=== PATIENT | female | born 1975 | race Hispanic/Latino ===

== ENCOUNTER 2018-09-30 21:12 | Emergency (ER) | payer MEDICAID | END 2018-09-30 21:33 | disposition home or self-care (01) | LOC: EDH 21:12 | DX: G44.209 Tension-type headache, unspecified, not intractable (principal); G43.909 Migraine, unspecified, not intractable, without status migrainosus; Z98.890 Other specified postprocedural states | CPT/HCPCS: 99281 ==

== ENCOUNTER 2019-01-15 08:59 | Emergency (ER) | payer MEDICAID, OTHER ==
[2019-01-15] MEDS ORDERED: SODIUM CHLORIDE 0.9% 1000ML 1,000 ML IV ONE (09:31)
[2019-01-15] MEDS ORDERED: ONDANSETRON HCL 4 MG/2 ML VIAL ONE (09:31)
[2019-01-15] MEDS ORDERED: KETOROLAC TROMETHAMINE 30MG/ML ONE (09:31)
[2019-01-15 09:46] LABS: APPEARANCE,URINE Cloudy (CLEAR); BILIRUBIN,URINE Negative (NEGATIVE); COLOR,URINE Yellow (YELLOW); GLUCOSE, URINE (UA) Negative (NEGATIVE); KETONES,URINE Negative (NEGATIVE); LEUKOCYTE ESTERASE ,URINE Small (NEGATIVE); NITRATE,URINE Negative (NEGATIVE); OCCULT BLOOD,URINE Small (NEGATIVE); PH,URINE 5.5 (5.0-8.0); PROTEIN,URINE POS 2+ mg/dL (NEGATIVE)
[2019-01-15 09:51] LABS: BASOPHILS % (AUTO) 0.9 % (0.0-5.0); EOSINOPHILS % (AUTO) 1.2 % (0.0-8.0); HEMATOCRIT 40.1 % (36-48); LYMPHOCYTES % (AUTO) 18.1 % (21.0-51.0); MEAN CORPUSCULAR HEMOGLOBIN 29.9 pg (27.0-33.0); MEAN CORPUSCULAR HGB CONC 34.4 g/dL (32.0-36.0); MEAN CORPUSCULAR VOLUME 86.8 fL (79-99); MONOCYTES % (AUTO) 6.3 % (3.0-13.0); NEUTROPHILS % (AUTO) 73.5 % (40.0-77.0); PLATELET COUNT (AUTO) 171 K/uL (130-400); RED BLOOD CELL COUNT(AUTO) 4.62 MIL/uL (4.00-5.50); RED CELL DISTRIBUTION WIDTH 13.3 % (11.0-15.5); WHITE BLOOD COUNT (AUTO) 5.9 K/uL (4.8-10.8)
[2019-01-15 09:52] LABS: HCG,QUAL RESULT NEGATIVE (NEGATIVE)
[2019-01-15 09:54] LABS: CREATININE 0.9 mg/dL (0.5-1.5); POTASSIUM 3.9 mmol/L (3.5-5.1)
[2019-01-15 09:55] LABS: AMPHET/METH SCREEN,URINE NEGATIVE (NEGATIVE); BARBITURATE SCREEN, URINE NEGATIVE (NEGATIVE); BENZODIAZEPINES SCREEN,URINE NEGATIVE (NEGATIVE); CANNABINOID SCREEN,URINE NEGATIVE (NEGATIVE); COCAINE SCREEN,URINE NEGATIVE (NEGATIVE); OPIATE SCREEN,URINE NEGATIVE (NEGATIVE); PHENCYCLIDINE SCREEN,URINE NEGATIVE (NEGATIVE)
[2019-01-15 09:57] LABS: BACTERIA,URINE Few /HPF (None Seen); MUCUS,URINE Few LPF (None Seen); RBC,URINE 0-1 /HPF (0-1); SQUAMOUS EPITHELIAL CELL,UR Few /HPF (0-2)
[2019-01-15 10:00] LABS: ALBUMIN 3.8 g/dL (3.5-5.0); BILIRUBIN,DIRECT 0.1 mg/dL (0.0-0.3); BILIRUBIN,TOTAL 0.4 mg/dL (0.2-1.0); TOTAL PROTEIN, SERUM 7.5 g/dL (6.0-8.3)
== END 2019-01-15 12:47 | disposition home or self-care (01) ==
LOC: EDH 08:59
DX: R10.13 Epigastric pain (principal); R10.11 Right upper quadrant pain; R11.0 Nausea; G43.909 Migraine, unspecified, not intractable, without status migrainosus; Z98.890 Other specified postprocedural states
CPT/HCPCS: 36415; 76705; 80048; 80076; 80305; 81001; 81025; 83690; 85025; 93005; 96374; 96375; 99285; J1885; J2405; J7030

== ENCOUNTER 2020-05-07 23:25 | Emergency (ER) | payer OTHER ==
[2020-05-07 23:49] LABS: BASOPHILS % (AUTO) 0.5 % (0.0-5.0); EOSINOPHILS % (AUTO) 0.4 % (0.0-8.0); HEMATOCRIT 44.6 % (36-48); LYMPHOCYTES % (AUTO) 19.6 % (21.0-51.0); MEAN CORPUSCULAR HEMOGLOBIN 30.5 pg (27.0-33.0); MEAN CORPUSCULAR HGB CONC 33.6 g/dL (32.0-36.0); MEAN CORPUSCULAR VOLUME 90.8 fL (79-99); NEUTROPHILS % (AUTO) 73.1 % (40.0-77.0); PLATELET COUNT (AUTO) 240 K/uL (130-400); RED BLOOD CELL COUNT(AUTO) 4.91 MIL/uL (4.00-5.50); RED CELL DISTRIBUTION WIDTH 12.8 % (11.0-15.5); WHITE BLOOD COUNT (AUTO) 12.8 K/uL (4.8-10.8)
[2020-05-07] MEDS ORDERED: KETOROLAC TROMETHAMINE 30MG/ML ONE (23:52)
[2020-05-07] MEDS ORDERED: DiphenhydrAMINE HCL 50 MG/ML VIAL ONE (23:52)
[2020-05-07] MEDS ORDERED: PROCHLORPERAZINE EDISYLATE 10 MG/2 ML VIAL ONE (23:53)
[2020-05-07 23:57] LABS: POTASSIUM 3.9 mmol/L (3.5-5.1)
[2020-05-08 00:02] LABS: ALBUMIN 4.2 g/dL (3.5-5.0); BILIRUBIN,TOTAL 0.2 mg/dL (0.2-1.0); TOTAL PROTEIN, SERUM 8.2 g/dL (6.0-8.3)
[2020-05-08 00:08] LABS: INR 0.98 (0.85-1.15); PROTHROMBIN TIME 10.5 SEC (9.6-11.6)
[2020-05-08 00:09] LABS: PARTIAL THROMBOPLASTIN TIME 24.5 SEC (26.3-35.5)
== END 2020-05-08 01:21 | disposition home or self-care (01) ==
LOC: EDH 23:25
DX: G43.009 Migraine without aura, not intractable, without status migrainosus (principal); R07.89 Other chest pain; R11.0 Nausea; Z98.890 Other specified postprocedural states
CPT/HCPCS: 36415; 71045; 80053; 84484; 85025; 85610; 85730; 93005; 96361; 96374; 96375; 99285; J0780; J1200; J1885

== ENCOUNTER 2020-12-03 22:30 | Emergency (ER) | payer MEDICAID, OTHER ==
[~2020-12-03] VITALS: Ht 157.5 cm; Wt 64.4 kg
[2020-12-03 23:15] VITALS: BP 109/74
[2020-12-04] MEDS ORDERED: PROMETHAZINE HCL 25 MG/ML 1ML AMPULE IM ONE (04:00)
[2020-12-04] MEDS ORDERED: DiphenhydrAMINE HCL 50 MG/ML VIAL IM ONE (04:00)
[2020-12-04] MEDS ORDERED: PROC5TAB54 PO (05:40)
[2020-12-04 05:44] VITALS: BP 118/55
== END 2020-12-04 05:53 | disposition home or self-care (01) ==
LOC: EDH 22:30
DX: J06.9 Acute upper respiratory infection, unspecified (principal); R11.2 Nausea with vomiting, unspecified; R51.9 Headache, unspecified; Z20.822 Contact with and (suspected) exposure to COVID-19; Z79.899 Other long term (current) drug therapy
CPT/HCPCS: 87635; 96372 ×2; 99284; C9803; J1200; J2550

== ENCOUNTER 2024-05-24 16:24 | Emergency (ER) | payer MEDICAID ==
[~2024-05-24] VITALS: Ht 157.5 cm; Wt 59.0 kg
[~2024-05-24 16:24] MED LIST: PROC5TAB54 PO
--- NOTE | 2024-05-24 16:38 | ERN ---
ED Note History of Present Illness Stated Complaint: VOMITTING,HEADACHE,MULTIPLE COMPLAINTS Chief Complaint: Headache Time Seen by MD: 16:28 Dictation: PATIENT IS A 48-YEAR-OLD FEMALE COMING IN TODAY WITH RIGHT TEMPOROPARIETAL HEADACHE THAT RADIATES TO OCCIPITAL AREA FOR TWO DAYS. SHE STATES SHE HAS HAD INTERMITTENT VOMITING HAS BEEN DIAGNOSED IN THE PAST BY HER PRIMARY CARE DOCTOR WITH MIGRAINE HEADACHES AND TAKES A MEDICATION, NOT WITH HER. NIH IS 0. SHE DROVE HERSELF TO THE EMERGENCY ROOM, DID NOT GO SEE HER PRIMARY CARE DOCTOR. Allergies: Coded Allergies: No Known Drug Allergies (Unverified Allergy, Unknown, 10/01/18) Home Meds Active Scripts Prochlorperazine Maleate (Compazine) 5 Mg Tab, 5 MG PO TID for headache, #7 TAB Prov:MAG LADD MD 12/04/20 Past Medical History Past Medical History: No Pertinent History Surgical History: Family History: DM, HTN : 5 Para: 2 Aborts: 0 RN Note Reviewed/Agreed w/PFSH: Yes Review of System Dictation CONSTITUTIONAL: NEGATIVE EXCEPT FOR HPI HEAD/FACE: NEGATIVE EXCEPT FOR HPI EENT: NEGATIVE EXCEPT FOR HPI RESPIRATORY: NEGATIVE EXCEPT FOR HPI GASTROINTESTINAL/ABDOMINAL: NEGATIVE EXCEPT FOR HPI NAUSEA VOMITING INTERMITTENT GENITOURINARY: NEGATIVE EXCEPT FOR HPI MUSCULOSKELETAL: NEGATIVE EXCEPT FOR HPI INTEGUMENTARY: NEGATIVE EXCEPT FOR HPI NEUROLOGICAL/PSYCH: NEGATIVE EXCEPT FOR HPI HEADACHE HEMATOLOGIC/LYMPHATIC: NEGATIVE EXCEPT FOR HPI ALL SYSTEMS NEGATIVE, EXCEPT NOTED ABOVE. 13 POINT REVIEW OF SYSTEMS ASSESSED AND ALL NEGATIVE EXCEPT FOR ABOVE. Initial Vital Sign VS Vital Signs Date Time Temp Pulse Resp B/P (MAP) Pulse Ox O2 Delivery O2 Flow Rate FiO2 05/24/24 16:29 98.6 80 20 126/88 99 N/C High Flow System 0 05/24/24 17:17 21 Physical Exam Dictation VITAL SIGNS REVIEWED GENERAL APPEARANCE: ALERT, ORIENTED X 3, MILD ACUTE DISTRESS, WELL DEVELOPED, NOURISHED. HEAD AND FACE: NON-TRAUMATIC. EYES: PERRL, PINK CONJUNCTIVAS, EYELID NO TRAUMA, ANTERIOR CHAMBER WITH ARCUS SENILIS. EARS: PINNAS INTACT AND NO SIGNS OF TRAUMA OR ERYTHEMA EAR CANALS CLEAR AND NO DISCHARGE TM NO ERYTHEMA NOSE: NO DISCHARGE, NO BLEEDING. OROPHARYNX: MOUTH NORMAL, TONGUE PINK, PHARYNX CLEAR,NO ERYTHEMA, TONSILS NO EXUDATES, NO ABSCESSES NOTED, MUCOUS MEMBRANE MOIST NECK: SUPPLE, NON-TENDER, NO THYROMEGALY, NO MASSES, NO JVD, NO BRUITS BREAST:DEFERRED CHEST:NO TENDERNESS, NO CREPITUS, NO PARADOXICAL MOVEMENT, NO RETRACTIONS LUNGS:CLEAR, WELL-VENTILATED, SYMMETRIC, NO RALES, NO WHEEZING, NO RHONCHI, NO STRIDOR, GOOD BREATH SOUNDS BILATERALLY HEART: REGULAR RATE, REGULAR RHYTHM, NO MURMUR, NO GALLOPS VASCULAR: NO PERIPHERAL EDEMA, ABDOMEN: SOFT, POSITIVE BOWEL SOUNDS, NONDISTENDED, NO GUARDING, NONTENDER, NO REBOUND, NO MASSES NO HEPATOMEGALY, NO SPLENOMEGALY, NO BACA'S SIGN, NO HERNIAS. RECTAL: DEFERRED GENITAL: DEFERRED NEUROLOGICAL: NORMAL SPEECH, MOTOR FUNCTION INTACT, SENSORY FUNCTION INTACT MUSCULOSKELETAL: NECK NONTENDER, FULL RANGE OF MOTION, BACK NONTENDER, FULL RA NGE OF MOTION, EXTREMITIES: NONTENDER, FULL RANGE OF MOTION SKIN: COLOR PINK, DRY, NO TURGOR, NO RASH, NO LACERATIONS, NO ABRASIONS, NO CONTUSIONS. LYMPHATIC: DEFERRED Results (Laboratory/Radiology) Labs Reviewed?: Yes ED Course ED Course Orders Procedure Category Date Status Time Ketorolac 60mg/2ml PHA 05/24/24 Complete (Toradol 60mg/2ml) 17:00 Acetaminophen 500mg PHA 05/24/24 Complete Tab (Tylenol 500mg T 17:00 Ondansetron Odt 4mg PHA 05/24/24 Complete Tab (Zofran 4mg Odt) 17:00 Current Medications Medications (Trade) Dose Ordered Sig/Tim Route PRN Reason Start Time Stop Time Status Last Admin Dose Admin Acetaminophen (TYLenol 500MG TAB) 1,000 mg ONCE ONCE PO 05/24/24 17:00 05/24/24 17:01 DC Ketorolac Tromethamine (toRADol 60MG/ 2ML) 60 mg ONCE ONCE IM 05/24/24 17:00 05/24/24 17:01 DC Ondansetron HCl (zoFRAN 4MG ODT) 4 mg ONCE ONCE SL 05/24/24 17:00 05/24/24 17:01 DC Vital Signs Date Time Temp Pulse Resp B/P (MAP) Pulse Ox O2 Delivery O2 Flow Rate FiO2 05/24/24 17:17 98.6 80 20 126/88 99 Room Air* 0 21 05/24/24 16:29 98.6 80 20 126/88 99 N/C High Flow System 0 SEVENTEEN 20, PATIENT HEMODYNAMICALLY STABLE AND DISCHARGED HOME AFTER TREATMENT FOR TENSION TYPE HEADACHE. SHE WILL BE DISCHARGED HOME WITH FIORICET TOLD TO SEE HER PRIMARY CARE DOCTOR TOMORROW OR THE NEXT DAY FOR FOLLOW UP AND MANAGEMENT Medical Decision Making MDM MEDICAL DISCHARGE MAKING BASED ON EMPIRIC TREATMENT FOR A TENSION TYPE HEADACHE. PATIENT WILL BE DISCHARGED HOME WITH FIORICET AND ONDANSETRON TOLD TO SEE HER PRIMARY CARE DOCTOR IN 1-2 DAYS FOR MANAGEMENT DX & DISP Disposition: Discharge Departure Impression: Primary Impression: Tension type headache, unspecified Condition: Stable Scripts Ondansetron (Ondansetron Odt) 4 Mg Tab.rapdis 4 MG PO Q6HPRN PRN for nausea, #16 TAB 0 Refills Prov: GILSON MCCALLUM NP 05/24/24 Butalb/Acetaminophen/Caffeine (Esgic 50-325-40 mg Tablet) 50 Mg-325 Mg-40 Mg Tablet 2 TAB PO Q4H for HEADACHE, #20 TAB 0 Refills TWO TABLETS BY MOUTH P.R.N. HEADACHE, MAXIMUM SIX TABLETS IN 24 HOURS. Prov: GILSON MCCALLUM NP 05/24/24 Additional Instructions: FOLLOW-UP WITH PRIMARY CARE PROVIDER IN 1 TO 2 DAYS. TAKE MEDICATIONS DIRECTED HERE IN THE EMERGENCY ROOM. OKAY TO CONTINUE HOME MEDICATIONS UNLESS OTHERWISE DISCUSSED DURING YOUR VISIT IN THE EMERGENCY ROOM TODAY. RETURN TO YOUR NEAREST EMERGENCY ROOM IF SYMPTOMS WORSEN OR IF THERE IS NO IMPROVEMENT. CALL 911 IF YOU NEED IMMEDIATE ASSISTANCE. TAKE TYLENOL OR MOTRIN [id number] NEEDED AND IF NO CONTRAINDICATIONS ARE PRESENT. INCREASE ORAL HYDRATION. A WOUND CULTURE OR URINE CULTURE WAS ORDERED HERE IN THE EMERGENCY ROOM DEPARTMENT PLEASE FOLLOW-UP WITH PRIMARY CARE PROVIDER AND ADVISE THEM TO GET REPEAT PORTS FROM OUR FACILITY. IF YOU HAD ANY FAUSTO WRAP/SPLINTS THAT WERE APPLIED HERE, PLEASE DO NOT REMOVE THEM UNTIL YOU SEE YOUR PRIMARY CARE OR SPECIALTY. TAKE MEDICATIONS DIRECTED FOR YOUR HEADACHE. SEE YOUR PRIMARY CARE DOCTOR FOR FOLLOW UP AND MANAGEMENT THE NEXT 1-2 DAYS Referrals: NAMAN SALDANA (PCP) Time of Disposition: 17:22 I have reviewed the case, and I agree with, Diagnosis and Plan GILSON MCCALLUM NP May 24, 2024 16:38
[2024-05-24 17:17] VITALS: BP 126/88; PULSE 80; RESP 20; TEMP 98.6; O2SAT 99
[2024-05-24] MEDS ORDERED: BUTA-271 PO (17:23)
[2024-05-24] MEDS ORDERED: ONDA-243 PO (17:23)
[2024-05-24] MEDS: ketOROlac 60 MG VIAL (30MG/ML) IM ONE (17:29)
[2024-05-24] MEDS: ondanSETRON ODT 4MG TAB SL ONE (17:30)
[2024-05-24] MEDS: acetaMINOPHEN 500 MG TABLET PO ONE (17:30)
== END 2024-05-24 17:37 | disposition home or self-care (01) ==
LOC: EDH 16:24
DX: G44.209 Tension-type headache, unspecified, not intractable (principal); Z79.899 Other long term (current) drug therapy; Z98.890 Other specified postprocedural states
CPT/HCPCS: 99283; 96372; J1885

== ENCOUNTER 2024-05-25 23:56 | Emergency (ER) | payer MEDICAID ==
[~2024-05-25] VITALS: Ht 157.5 cm; Wt 59.0 kg
[~2024-05-25 23:56] MED LIST changes: +BUTA-271 PO; +ONDA-243 PO
[2024-05-26 01:22] LABS: BASOPHILS # (AUTO) 0.04 K/uL (0.00-0.20); BASOPHILS % (AUTO) 0.6 % (0.0-5.0); EOSINOPHILS # (AUTO) 0.15 K/uL (0.00-0.70); EOSINOPHILS % (AUTO) 2.3 % (0.0-8.0); HEMATOCRIT 37.7 % (36-48); IMMATURE GRANULOCYTE ABSOLUTE 0.03 K/uL (0-1); LYMPHOCYTES % (AUTO) 30.2 % (21.0-51.0); MEAN CORPUSCULAR HEMOGLOBIN 31.1 pg (27.0-33.0); MEAN CORPUSCULAR HGB CONC 34.2 g/dL (32.0-36.0); MEAN CORPUSCULAR VOLUME 90.8 fL (79-99); MONOCYTES # (AUTO) 0.5 K/uL (0.1-1.0); MONOCYTES % (AUTO) 7.5 % (3.0-13.0); NEUTROPHILS # (AUTO) 3.9 K/uL (1.8-7.7); NEUTROPHILS % (AUTO) 58.9 % (40.0-77.0); PLATELET COUNT (AUTO) 177 K/uL (130-400); RED BLOOD CELL COUNT(AUTO) 4.15 MIL/uL (4.00-5.50); RED CELL DISTRIBUTION WIDTH 13.2 % (11.0-15.5); WHITE BLOOD COUNT (AUTO) 6.6 K/uL (4.8-10.8)
[2024-05-26] MEDS: metoCLOPRAmide 10 MG/2 ML VIAL IVP ONE (01:36)
[2024-05-26] MEDS: DiphenhydrAMINE HCL 50 MG/ML VIAL IV ONE (01:36)
[2024-05-26] MEDS: acetaMINOPHEN 500 MG TABLET PO ONE (01:36)
[2024-05-26] MEDS: 0.9%NACL 1000ML 1,000 ML IV ONE (01:37)
--- NOTE | 2024-05-26 03:57 | ERN ---
ED Note History of Present Illness Stated Complaint: HEADACHE Chief Complaint: Headache Time Seen by MD: 23:59 Time Seen by Midlevel: 23:59 Dictation: The patient is a 48-year-old female with a no significant medical history who presents to the emergency department with a occipital headache onset for pain. Patient reports she took her prescribed Fioricet and the pain went away but it came back after a few hours. Patient was seen here yesterday and was diagnosed with a tension headache. Denies any head trauma. Denies any nausea or vomiting. Denies any visual deficits. Patient reports she has been having headaches all of her life and does not recall if she has ever gone any imaging. No other complaints reported. Allergies: Coded Allergies: No Known Drug Allergies (Unverified Allergy, Unknown, 10/01/18) Home Meds Active Scripts Ondansetron (Ondansetron Odt) 4 Mg Tab.rapdis, 4 MG PO Q6HPRN PRN for nausea, #16 TAB 0 Refills Prov:GILSON MCCALLUM NP 05/24/24 Butalb/Acetaminophen/Caffeine (Esgic 50-325-40 mg Tablet) 50 Mg-325 Mg-40 Mg Tablet, 2 TAB PO Q4H for HEADACHE, #20 TAB 0 Refills TWO TABLETS BY MOUTH P.R.N. HEADACHE, MAXIMUM SIX TABLETS IN 24 HOURS. Prov:GILSON MCCALLUM NP 05/24/24 Prochlorperazine Maleate (Compazine) 5 Mg Tab, 5 MG PO TID for headache, #7 TAB Prov:MAG LADD MD 12/04/20 Past Medical History Past Medical History: No Pertinent History Surgical History: Family History: DM, HTN : 5 Para: 2 Aborts: 0 RN Note Reviewed/Agreed w/PFSH: Yes Review of System Dictation Constitutional: Negative for fever,chills, and weight loss Eyes: Negative for injury, pain,redness, and discharge ENT: Negative for injury,pain or swelling Cardiovascular: Negative for chest pain, palpitations, and edema Respiratory: Negative for shortness of breath, cough, and wheezing, Abdomen/GI: Negative for abdominal pain, nausea, vomiting, diarrhea, and constipation Back: Negative for injury and pain : Negative for injury, bleeding and discharge MS/Extremity: Negative for injury and deformity Skin: Negative for rash, and discoloration Neuro: Negative for , weakness, numbness, tingling, and seizure positive for headache Psych: Negative for suicide ideation, homicidal ideation, and hallucinations Initial Vital Sign VS Vital Signs Date Time Temp Pulse Resp B/P (MAP) Pulse Ox O2 Delivery O2 Flow Rate FiO2 05/26/24 00:01 98.4 65 18 134/87 99 Physical Exam Dictation Vital Signs reviewed General Appearance: Alert, oriented x 3, no acute distress, well developed, nourished. Head and Face: non-traumatic. Eyes: PERRL, pink conjunctivas, eyelid no trauma, anterior chamber with arcus senilis. Ears: Pinnas intact and no signs of trauma or erythema ear canals clear and no discharge TM no erythema Nose: No discharge, no bleeding. Oropharynx: Mouth normal, tongue pink. pharynx clear,no erythema, tonsils no exudates, no abscesses noted, mucous membrane moist Neck: Supple, non-tender, no thyromegaly, no masses, no JVD, no bruits Breast:Deferred Chest:No tenderness, no crepitus, no paradoxical movement, no retractions Lungs:Clear, well-ventilated, symmetric, no rales, no wheezing, no rhonchi, no stridor, good breath sounds bilaterally Heart: Regular rate, regular rhythm, no murmur, no gallops Vascular: no peripheral edema, Abdomen: Soft, positive bowel sounds, nondistended, no guarding, nontender, no rebound, no masses no hepatomegaly, no splenomegaly, no Couch's sign, no hernias. Rectal: Deferred Genital: Deferred Neurological: Normal speech, motor function intact, sensory function intact , upper extremities equal and strength, lower extremities equal and strength Musculoskeletal: Neck nontender, full range of motion, back nontender, full rang e of motion, Extremities: nontender, full range of motion Skin: Color pink, dry, no turgor, no rash, no lacerations, no abrasions, no contusions. Lymphatic: Deferred Results (Laboratory/Radiology) Laboratory/Radiology Laboratory Tests Test 05/26/24 00:51 White Blood Count 6.6 K/uL (4.8-10.8) Red Blood Count 4.15 MIL/uL (4.00-5.50) Hemoglobin 12.9 g/dL (12.0-16.0) Hematocrit 37.7 % (36-48) Mean Corpuscular Volume 90.8 fL (79-99) Mean Corpuscular Hemoglobin 31.1 pg (27.0-33.0) Mean Corpuscular Hemoglobin Concent 34.2 g/dL (32.0-36.0) Red Cell Distribution Width 13.2 % (11.0-15.5) Platelet Count 177 K/uL (130-400) Mean Platelet Volume 12.7 fL (7.5-10.5) H Immature Granulocyte % (Auto) 0.5 % (0-1) Neutrophils (%) (Auto) 58.9 % (40.0-77.0) Lymphocytes (%) (Auto) 30.2 % (21.0-51.0) Monocytes (%) (Auto) 7.5 % (3.0-13.0) Eosinophils (%) (Auto) 2.3 % (0.0-8.0) Basophils (%) (Auto) 0.6 % (0.0-5.0) Neutrophils # (Auto) 3.9 K/uL (1.8-7.7) Lymphocytes # (Auto) 2.0 K/uL (1.0-4.8) Monocytes # (Auto) 0.5 K/uL (0.1-1.0) Eosinophils # (Auto) 0.15 K/uL (0.00-0.70) Basophils # (Auto) 0.04 K/uL (0.00-0.20) Absolute Immature Granulocyte (auto 0.03 K/uL (0-1) Nucleated Red Blood Cells 0.0 % (0.0-0.19) Sodium Level 140 mmol/L (136-145) Potassium Level 4.0 mmol/L (3.5-5.1) Chloride Level 105 mmol/L (101-111) Carbon Dioxide Level 30 mmol/L (21-32) Blood Urea Nitrogen 11 mg/dL (7-18) Creatinine 1.0 mg/dL (0.5-1.0) Glomerular Filtration Rate Calc 70 mL/min (>90) Random Glucose 96 mg/dL (70-105) Total Calcium 8.6 mg/dL (8.5-10.1) Serum Test, Qualitative NEGATIVE (NEGATIVE) Labs Reviewed?: Yes ED Course ED Course Orders Procedure Category Date Status Time Cbc With Differential LAB 05/26/24 Complete 00:23 Basic Metabolic Panel LAB 05/26/24 Complete 00:23 Testing, LAB 05/26/24 Complete Serum Hcg 00:23 0.9%Nacl 1000ml (Ns PHA 05/26/24 Complete 1000ml) 00:30 Metoclopramide 10 PHA 05/26/24 Complete Mg/2 Ml Vial (Reglan 1 00:30 Diphenhydramine Hcl PHA 05/26/24 Complete (Benadryl Inj) 00:30 Acetaminophen 500mg PHA 05/26/24 Complete Tab (Tylenol 500mg T 00:30 Ct Head/Brain W/O CT 05/26/24 Taken Contrast 01:53 Current Medications Medications (Trade) Dose Ordered Sig/Tim Route PRN Reason Start Time Stop Time Status Last Admin Dose Admin Acetaminophen (TYLenol 500MG TAB) 1,000 mg ONCE ONCE PO 05/26/24 00:30 05/26/24 00:31 DC 05/26/24 01:36 Diphenhydramine HCl (BENAdryl INJ) 25 mg ONCE ONCE IV 05/26/24 00:30 05/26/24 00:31 DC 05/26/24 01:36 Metoclopramide HCl (regLAN 10MG IV) 10 mg ONCE ONCE IVP 05/26/24 00:30 05/26/24 00:31 DC 05/26/24 01:36 Sodium Chloride 1,000 ml @ 0 mls/hr ONCE ONCE IV 05/26/24 00:30 05/26/24 00:31 DC 05/26/24 01:37 Vital Signs Date Time Temp Pulse Resp B/P (MAP) Pulse Ox O2 Delivery O2 Flow Rate FiO2 05/26/24 00:01 98.4 65 18 134/87 99 Medical Decision Making MDM The patient is a 48-year-old female with a no significant medical history who presents to the emergency department with a occipital headache onset for pain. Patient reports she took her prescribed Fioricet and the pain went away but it came back after a few hours. Patient was seen here yesterday and was diagnosed with a tension headache. Denies any head trauma. Denies any nausea or vomiting. Denies any visual deficits. Patient reports she has been having headaches all of her life and does not recall if she has ever gone any imaging. No other complaints reported. CBC showed no leukocytosis, no anemia, chemistry showed no electrolyte imbalance, GFR of 70, negative serum , CT head showed no intracranial hemorrhage, mass effect or edema. Patient reports headache went away medication treatment. Patient in no acute distress will continues neurologically intact. Will be discharged to follow up with PCP. Differential diagnosis: Tension headache, dehydration, intracerebral hemorrhage Need for hospitalization: Patient does not meet criteria for hospitalization. There are no social concerns with this patient. DX & DISP Disposition: Discharge Departure Impression: Primary Impression: Tension type headache, unspecified Condition: Stable Additional Instructions: FOLLOW-UP WITH PRIMARY CARE PROVIDER IN 1 TO 2 DAYS. TAKE MEDICATIONS DIRECTED HERE IN THE EMERGENCY ROOM. OKAY TO CONTINUE HOME MEDICATIONS UNLESS OTHERWISE DISCUSSED DURING YOUR VISIT IN THE EMERGENCY ROOM TODAY. RETURN TO YOUR NEAREST EMERGENCY ROOM IF SYMPTOMS WORSEN OR IF THERE IS NO IMPROVEMENT. CALL 911 IF YOU NEED IMMEDIATE ASSISTANCE. TAKE TYLENOL OR MOTRIN [id number] NEEDED AND IF NO CONTRAINDICATIONS ARE PRESENT. INCREASE ORAL HYDRATION. A WOUND CULTURE OR URINE CULTURE WAS ORDERED HERE IN THE EMERGE [facility] ROOM DEPARTMENT PLEASE FOLLOW-UP WITH PRIMARY CARE PROVIDER AND ADVISE THEM TO GET REPEAT PORTS FROM OUR FACILITY. IF YOU HAD ANY FAUSTO WRAP/SPLINTS THAT WERE APPLIED HERE, PLEASE DO NOT REMOVE THEM UNTIL YOU SEE YOUR PRIMARY CARE OR SPECIALTY. Referrals: NAMAN SALDANA (PCP) GRISEL FRANK MD Time of Disposition: 03:56 I have reviewed the case, and I agree with, Diagnosis and Plan SHMUEL REDDY [facility] LAB TECH May 26, 2024 03:57
[2024-05-26 04:07] VITALS: BP 125/65; PULSE 88; RESP 18; TEMP 98.5; O2SAT 99
--- NOTE | 2024-05-26 09:33 | HMCIMG ---
CT HEAD/BRAIN W/O CONTRAST HISTORY: Headaches COMPARISON: None TECHNIQUE: Multiple sequential axial images of the head were obtained from the base of the skull through vertex. Patient was not given contrast through intravenous route. FINDINGS: The ventricles and extraventricular CSF spaces are nondilated for patient's age. There is no midline shift, mass effect or herniation. No acute intracranial bleed is seen. Visualized portion of the paranasal sinuses are grossly within normal limits. IMPRESSION: 1. No acute intracranial bleed is seen. CT was performed with one or more following dose reduction techniques: automated exposure control, adjustment of the mA and kv according to patient's size, or use of a iterative reconstruction technique.
== END 2024-05-26 04:09 | disposition home or self-care (01) ==
LOC: EDH 23:56
DX: G44.209 Tension-type headache, unspecified, not intractable (principal); Z98.890 Other specified postprocedural states
CPT/HCPCS: 99285; 80048; 84703; 85025; 36415; 96374; 70450; 96375; J1200; J7030; J2765

== ENCOUNTER 2024-10-21 11:26 | Emergency (ER) | payer MEDICAID ==
[~2024-10-21] VITALS: Ht 157.5 cm; Wt 59.0 kg
--- NOTE | 2024-10-21 14:31 | ERN ---
ED Note History of Present Illness Stated Complaint: HEADACHE Chief Complaint: Headache Time Seen by MD: 11:31 Time Seen by Midlevel: 11:33 Dictation: 49-year-old female with a history of migraines coming in with complaints of headache onset two days ago. Patient states he has photophobia and phonophobia. LMP 10/02/2024 states she is only taking Benadryl at 7:00 a.m. and has not helped. Denies any fevers, nausea vomiting, no neck pain. Allergies: Coded Allergies: No Known Drug Allergies (Unverified Allergy, Unknown, 10/01/18) Home Meds Active Scripts Ondansetron (Ondansetron Odt) 4 Mg Tab.rapdis, 4 MG PO Q6HPRN PRN for nausea, #16 TAB 0 Refills Prov:GILSON MCCALLUM BIOMET[employer] EXPERIMENTALIST 05/24/24 Butalb/Acetaminophen/Caffeine (Esgic 50-325-40 mg Tablet) 50 Mg-325 Mg-40 Mg Tablet, 2 TAB PO Q4H for HEADACHE, #20 TAB 0 Refills TWO TABLETS BY MOUTH P.R.N. HEADACHE, MAXIMUM SIX TABLETS IN 24 HOURS. Prov:GILSON MCCALLUM NP 05/24/24 Prochlorperazine Maleate (Compazine) 5 Mg Tab, 5 MG PO TID for headache, #7 TAB Prov:MAG LADD MD 12/04/20 Past Medical History Past Medical History: Other Additional Past Medical Hx: HEADACHE Surgical History: Family History: DM, HTN LMP: Oct 10, 2024 : 4 Para: 4 Aborts: 0 Review of System Dictation Constitutional: Negative for fever,chills, and weight loss Eyes: Negative for injury, pain,redness, and discharge ENT: Negative for injury,pain or swelling Cardiovascular: Negative for chest pain, palpitations, and edema Respiratory: Negative for shortness of breath, cough, and wheezing, Abdomen/GI: Negative for abdominal pain, nausea, vomiting, diarrhea, and constipation Back: Negative for injury and pain : Negative for injury, bleeding and discharge MS/Extremity: Negative for injury and deformity Skin: Negative for rash, and discoloration Neuro: Complaining of headaches Psych: Negative for suicide ideation, homicidal ideation, and hallucinations Review of Systems: was completed Initial Vital Sign VS Vital Signs Date Time Temp Pulse Resp B/P (MAP) Pulse Ox O2 Delivery O2 Flow Rate FiO2 10/21/24 11:38 97.2 57 20 129/78 99 Room Air 0 10/21/24 13:15 21 Physical Exam Dictation General: awake, alert, NAD Head/Face: Normocephalic, atraumatic Eyes: PERRL, EOMI, vision at baseline ENT: oral cavity clear, TMs clear, no signs of infection Neck: Trachea midline, supple, no nuchal rigidity Cardiovascular: RRR, normal S1/S2, No MRGs, no JVD Respiratory: CTAB, no respiratory distress, No rales or wheezes Abdomen: Soft, non-tender, non-distended, normal bowel sounds, no guarding or rebound. Skin: Warm, dry, normal turgor, no rash MS/Extremity: Pulses equal, no cyanosis, neurovascular intact, FROM Neuro: COAx4, GCS 15, strength 5/5, CN 2-12 intact, normal cerebellar exam, normal gait, Psych: Normal behavior, mood, and affect normal ED Course ED Course Orders Procedure Category Date Status Time 0.9%Nacl 1000ml (Ns PHA 10/21/24 Complete 1000ml) 11:40 Diphenhydramine Hcl PHA 10/21/24 Complete (Benadryl Inj) 11:40 Metoclopramide 10 PHA 10/21/24 Complete Mg/2 Ml Vial (Reglan 1 11:40 Ketorolac PHA 10/21/24 Complete Tromethamine 15mg/Ml 11:40 Current Medications Medications (Trade) Dose Ordered Sig/Tim Route PRN Reason Start Time Stop Time Status Last Admin Dose Admin Diphenhydramine HCl (BENAdryl INJ) 25 mg ONCE STAT IV 10/21/24 11:40 10/21/24 11:44 DC 10/21/24 14:38 Ketorolac Tromethamine (toRADol) 15 mg ONCE STAT IV 10/21/24 11:40 10/21/24 11:44 DC 10/21/24 14:38 Metoclopramide HCl (regLAN 10MG IV) 10 mg ONCE STAT IVP 10/21/24 11:40 10/21/24 11:44 DC 10/21/24 14:38 Sodium Chloride 1,000 ml @ 1,000 mls/hr Q1H STAT IV 10/21/24 11:40 10/21/24 12:39 DC 10/21/24 14:38 Vital Signs Date Time Temp Pulse Resp B/P (MAP) Pulse Ox O2 Delivery O2 Flow Rate FiO2 10/21/24 13:15 97.2 57 20 128/78 99 Room Air* 0 21 10/21/24 11:38 97.2 57 20 129/78 99 Room Air 0 Medical Decision Making MDM MDM: 49-year-old female with a history of migraines coming in with complaints of headache onset two days ago. Patient states he has photophobia and phonophobia. LMP 10/02/2024 states she is only taking Benadryl at 7:00 a.m. and has not helped. Denies any fevers, nausea vomiting, no neck pain. No neurological deficits. 1430 pending disposition due to patient pending medication After migraine cocktail patient states she feels much better. We will disposition patient home and have patient follow up outpatient with her PCP. Differential diagnosis: Migraine, headache, cholesterol, tension headaches Rationale: Tests considered and ordered secondary to shared decision making include: Previous outside records reviewed: Old ER visits. Risk of complication and/or morbidity or mortality of patient management: None Medications-Per medication reconciliation Need for hospitalization: Patient does not meet criteria for hospitalization. Need for emergency major/minor surgery: No There are no social concerns with this patient. Prescription drug management Prescriptions will include symptomatic care Patient's prior external medical records from other ER visits were reviewed by me as indicated. Prior testing and results from previous visits were reviewed. Prior tests were taken into account with medical decision making and resource utilization, independent historian/historians were used to obtain complete medical history. I independently interpreted the test that were performed, results were reviewed by me and considered findings on radiology if ordered. Medical management and examination interpretation discussions were had by me with other qualified healthcare professionals as indicated for the patient's care. DX & DISP Disposition: Discharge Departure Impression: Primary Impression: Migraine Condition: Stable Additional Instructions: Please follow up with PCP in 1-2 days. Return to the hospital if you develop any fevers, nausea vomiting. Referrals: NAMAN SALDANA (PCP) Time of Disposition: 15:17 I have reviewed the case, and I agree with, Diagnosis and Plan WANDA BARRETT NP Oct 21, 2024 14:31
[2024-10-21] MEDS: 0.9%NACL 1000ML 1,000 ML IV STA (14:38)
[2024-10-21 15:28] VITALS: BP 124/77; PULSE 60; RESP 18; TEMP 97.5; O2SAT 98
== END 2024-10-21 15:29 | disposition home or self-care (01) ==
LOC: EDH 11:26
DX: G43.909 Migraine, unspecified, not intractable, without status migrainosus (principal); Z79.899 Other long term (current) drug therapy
CPT/HCPCS: 99284; 96374; 96375; J1885; J1200; J7030; J2765

== ENCOUNTER 2024-11-19 21:04 | Emergency (ER) | payer MEDICAID ==
[~2024-11-19] VITALS: Ht 157.5 cm; Wt 57.6 kg
--- NOTE | 2024-11-19 21:06 | NUR ---
UA CUP PROVIDED
[2024-11-19] MEDS: BUTALB/ACETAMINOPHEN/CAFFEINE 1 EACH TABLET PO PRN (21:38)
[2024-11-19] MEDS: LACTATED RINGERS 1000ML IV STA (21:38)
[2024-11-19 21:43] LABS: IMMATURE GRANULOCYTE ABSOLUTE 0.02 K/uL (0-1); NUCLEATED RED BLOOD CELLS 0.0 % (0.0-0.19); PLATELET COUNT (AUTO) 204 K/uL (130-400); RED BLOOD CELL COUNT(AUTO) 4.12 MIL/uL (4.00-5.50); RED CELL DISTRIBUTION WIDTH 13.2 % (11.0-15.5); WHITE BLOOD COUNT (AUTO) 7.3 K/uL (4.8-10.8)
[2024-11-19 21:54] LABS: APPEARANCE,URINE CLEAR (CLEAR); GLUCOSE, URINE (UA) NEGATIVE (NEGATIVE); LEUKOCYTE ESTERASE ,URINE 75 Leu/uL (NEGATIVE); NITRATE,URINE NEGATIVE (NEGATIVE); OCCULT BLOOD,URINE +- (TRACE) (NEGATIVE)
[2024-11-19 21:57] LABS: ADD UA MICROSCOPIC YES
[2024-11-19 21:57] LABS: CREATININE 0.9 mg/dL (0.5-1.0); GLOMERULAR FILTR. RATE CALC 79.0 mL/min (>90); GLUCOSE,RANDOM 97.0 mg/dL (70-105); SODIUM SERUM 139.0 mmol/L (136-145); UREA NITROGEN, BLOOD 14.0 mg/dL (7-18)
[2024-11-19 21:58] LABS: SQUAMOUS EPITHELIAL CELL,UR RARE /HPF (0-2)
[2024-11-19] MEDS: TRIAMCINOLONE ACETONIDE 40 MG/ML 1ML VIAL IM ONE (23:00)
[2024-11-19] MEDS: ORPHENADRINE 60MG/2ML IM ONE (23:01)
[2024-11-19] MEDS ORDERED: KETO10 PO (23:48)
[2024-11-19] MEDS ORDERED: CYCL10TA16 PO (23:48)
--- NOTE | 2024-11-19 23:50 | ERN ---
General Chief Complaint: Headache Stated Complaint: HEADACHE Time Seen by MD: 21:14 Source: patient History of Present Illness Initial Comments 49-year-old female with a history of headaches and coming to the emergency room for IV medications to treat them. She has been discharged a few times on Fioricet. She claims that medications just do not work for her the only thing that seems to work is the IV medicine that keeps her headaches away for several days. She states she can tell when a headache is coming on because of visual changes. She has never had these headaches evaluated by a physician who specializes in headaches. She does not take any medications for them. Allergies: Coded Allergies: No Known Drug Allergies (Unverified Allergy, Unknown, 10/01/18) Home Meds Active Scripts Ondansetron (Ondansetron Odt) 4 Mg Tab.rapdis, 4 MG PO Q6HPRN PRN for nausea, #16 TAB 0 Refills Prov:GILSON MCCALLUM B[employer] HELPER 05/24/24 Butalb/Acetaminophen/Caffeine (Esgic 50-325-40 mg Tablet) 50 Mg-325 Mg-40 Mg Tablet, 2 TAB PO Q4H for HEADACHE, #20 TAB 0 Refills TWO TABLETS BY MOUTH P.R.N. HEADACHE, MAXIMUM SIX TABLETS IN 24 HOURS. Prov:GILSON MCCALLUM NP 05/24/24 Prochlorperazine Maleate (Compazine) 5 Mg Tab, 5 MG PO TID for headache, #7 TAB Prov:MAG LADD MD 12/04/20 Past Medical History Past Medical History: Migraines Medical History Other: HEADACHE Past Surgical History: Family History Family History: DM, HTN Female( History) LMP: Nov 15, 2024 : 4 Para: 4 Aborts: 0 ROS Dictation Review of systems is otherwise negative. Physical Exam General Appearance: (+) mild distress Orientation: (+) alert, (+) oriented x 3 Head/Face Trauma: No Eye: bilateral eye normal inspection, bilateral eye PERRL, bilateral eye EOMI Ear, Nose, Throat: (+) hearing grossly normal, (+) normal ENT inspection Neck: (+) normal inspection, (+) supple, (+) full range of motion, (+) tender Respiratory: (+) chest non-tender, (+) lungs clear Heart: (+) regular, (+) no gallop Vascular: (+) no edema, (+) normal peripheral pulse Gastrointestinal: (+) soft, (+) non-tender, (+) bowel sound present Results Laboratory and Microbiology Lab and Micro Result Laboratory Tests Test 11/19/24 21:33 11/19/24 21:41 White Blood Count 7.3 K/uL (4.8-10.8) Red Blood Count 4.12 MIL/uL (4.00-5.50) Hemoglobin 12.5 g/dL (12.0-16.0) Hematocrit 36.6 % (36-48) Mean Corpuscular Volume 88.8 fL (79-99) Mean Corpuscular Hemoglobin 30.3 pg (27.0-33.0) Mean Corpuscular Hemoglobin Concent 34.2 g/dL (32.0-36.0) Red Cell Distribution Width 13.2 % (11.0-15.5) Platelet Count 204 K/uL (130-400) Mean Platelet Volume 11.6 fL (7.5-10.5) H Immature Granulocyte % (Auto) 0.3 % (0-1) Neutrophils (%) (Auto) 62.8 % (40.0-77.0) Lymphocytes (%) (Auto) 26.9 % (21.0-51.0) Monocytes (%) (Auto) 7.0 % (3.0-13.0) Eosinophils (%) (Auto) 2.3 % (0.0-8.0) Basophils (%) (Auto) 0.7 % (0.0-5.0) Neutrophils # (Auto) 4.6 K/uL (1.8-7.7) Lymphocytes # (Auto) 2.0 K/uL (1.0-4.8) Monocytes # (Auto) 0.5 K/uL (0.1-1.0) Eosinophils # (Auto) 0.17 K/uL (0.00-0.70) Basophils # (Auto) 0.05 K/uL (0.00-0.20) Absolute Immature Granulocyte (auto 0.02 K/uL (0-1) Nucleated Red Blood Cells 0.0 % (0.0-0.19) Sodium Level 139 mmol/L (136-145) Potassium Level 3.6 mmol/L (3.5-5.1) Chloride Level 103 mmol/L (101-111) Carbon Dioxide Level 30 mmol/L (21-32) Blood Urea Nitrogen 14 mg/dL (7-18) Creatinine 0.9 mg/dL (0.5-1.0) Glomerular Filtration Rate Calc 79 mL/min (>90) Random Glucose 97 mg/dL (70-105) Total Calcium 8.5 mg/dL (8.5-10.1) Urine Color LIGHT-YELLOW (YELLOW) Urine Appearance CLEAR (CLEAR) Urine pH 5.5 (5.0-8.0) Urine Specific [place] 1.020 (1.001-1.031) Urine Protein NEGATIVE mg/dL (NEGATIVE) Urine Glucose (UA) NEGATIVE mg/dL (NEGATIVE) Urine Ketones NEGATIVE mg/dL (NEGATIVE) Urine Occult Blood +- (TRACE) (NEGATIVE) H Urine Nitrate NEGATIVE (NEGATIVE) Urine Bilirubin NEGATIVE mg/dL (NEGATIVE) Urine Urobilinogen 0.2 mg/dL (0.2-1.0) Urine Leukocyte Esterase 75 Alejandro/uL (NEGATIVE) H Urine RBC 2-5 /HPF (0-1) H Urine WBC 26-50 /HPF (0-1) H Urine Squamous Epithelial Cells RARE /HPF (0-2) Urine Bacteria None /HPF (None Seen) MDM MDM: Differential diagnosis: Recurrent migraines, tension headaches, dehydration. Rationale: Tests considered and ordered secondary to shared decision making include: Previous outside records reviewed: Old ER visits. Risk of complication and/or morbidity or mortality of patient management: None Medications-Per medication reconciliation Need for hospitalization: Patient does meet criteria for hospitalization. Need for emergency major/minor surgery: No There are no social concerns with this patient. Prescription drug management Prescriptions will include symptomatic care Patient's prior external medical records from other ER visits were reviewed by me as indicated. Prior testing and results from previous visits were reviewed. Prior tests were taken into account with medical decision making and resource utilization, independent historian/historians were used to obtain complete medical history. I independently interpreted the test that were performed, results were reviewed by me and considered findings on radiology if ordered. IV fluids and Toradol did not help. I gave the patient IM nor flex and Kenalog in those relieved her headaches. I will discharge her with muscle relaxants and Toradol. ED Course Orders Procedure Category Date Status Time Butalb/Acetaminophen/Caffeine PHA 11/19/24 In Process (Butalbit- 21:30 Lactated Ringers PHA 11/19/24 Complete 1000ml (Lactated 21:23 Cbc With Differential LAB 11/19/24 Complete 21:24 Basic Metabolic Panel LAB 11/19/24 Complete 21:24 Urinalysis Profile LAB 11/19/24 Complete 21:24 Ketorolac PHA 11/19/24 Complete Tromethamine 30mg/Ml 22:00 Culture Urine UMER 11/19/24 Logged 21:57 Triamcinolone Acet PHA 11/19/24 Complete 40mg/Ml 1ml (Kenalog 23:00 Orphenadrine Citrate PHA 11/19/24 Complete (Norflex) 23:00 Current Medications Medications (Trade) Dose Ordered Sig/Tim Route PRN Reason Start Time Stop Time Status Last Admin Dose Admin Acetaminophen/ Butalbital/ Caffeine (Yrkefdex-Sndvuutrgtnen-Pnuu Tb) 2 each Q4H PRN PO headache 11/19/24 21:30 12/19/24 21:29 11/19/24 21:38 Ketorolac Tromethamine (toRADol) 30 mg ONCE ONCE IVP 11/19/24 22:00 11/19/24 22:01 DC 11/19/24 21:53 Lactated Ringer's (Lactated Ringers 1000ml) 1,000 ml BOLUS STAT IV 11/19/24 21:23 11/19/24 21:27 DC 11/19/24 21:38 Orphenadrine Citrate (Norflex) 60 mg ONCE ONCE IM 11/19/24 23:00 11/19/24 23:01 DC 11/19/24 23:01 Triamcinolone Acetonide (Kenalog 40) 40 mg ONCE ONCE IM 11/19/24 23:00 11/19/24 23:01 DC 11/19/24 23:00 Vital Signs Date Time Temp Pulse Resp B/P (MAP) Pulse Ox O2 Delivery O2 Flow Rate FiO2 11/19/24 21:20 97.5 77 18 151/78 98 Room Air* 0 21 11/19/24 21:06 97.5 66 18 151/78 99 Room Air DX & DISP Disposition: Discharge Departure Impression: Primary Impression: Tension type headache, unspecified Additional Impression: Migraine Condition: Stable Scripts Ketorolac Tromethamine (Toradol) 10 Mg Tab 1 TAB PO Q6HPRN PRN for pain for 5 Days, #20 TAB 0 Refills Prov: KAREN SINGH MD 11/19/24 Cyclobenzaprine HCl (Flexeril) 10 Mg Tab 10 MG PO TID for muscle sstiffness, #14 TAB 0 Refills Prov: KAREN SINGH MD 11/19/24 Additional Instructions: I can not tell if your headaches are migraines or tension headaches. You need to see a doctor who specializes in headache care to sort this out. Both migraine headaches and tension headaches are made worse by dehydration and muscle strain. I have given you prescriptions for pain medicine and a muscle relaxant. Please drink fluid every day especially in the hot summer. Drink enough to be sure your urine runs clear at least once a day. Get plenty of sleep. Avoid caffeine. These three things we will help prevent headaches from returning. Referrals: SELF,REFERRAL (PCP) KAREN SINGH MD Nov 19, 2024 23:49
[2024-11-19 23:59] VITALS: BP 137/68; PULSE 71; RESP 18; TEMP 97.5; O2SAT 99
== END 2024-11-20 | disposition home or self-care (01) ==
LOC: EDH 21:04
DX: G44.209 Tension-type headache, unspecified, not intractable (principal); G43.909 Migraine, unspecified, not intractable, without status migrainosus
CPT/HCPCS: 99284; 96374; 96361; 80048; 85025; 87086 ×2; 87186; 81001; 36415; 96372 ×2; J1885; J7120; J3301; J2360